=== PATIENT | male | born 1990 | race Two or more races ===

== ENCOUNTER 2020-08-08 10:24 | Emergency (ER) | payer OTHER ==
[~2020-08-08] VITALS: Ht 193 cm; Wt 140.6 kg
[~2020-08-08 10:24] MED LIST: AMOX1TAB12 PO; DOLOGEN CAPLET1 EACH PO; MEDROL4 MG PO; MUCINEX1200 MG/BO PO; ZITHROMAX PO
[2020-08-08] MEDS ORDERED: ZITHROMAX500 MG PO (13:40)
== END 2020-08-08 13:58 | disposition home or self-care (01) ==
LOC: ER 10:24
DX: B34.9 Viral infection, unspecified (principal); Z03.818 Encounter for observation for suspected exposure to other biological agents ruled out; R50.9 Fever, unspecified

== ENCOUNTER 2023-07-06 12:36 | Emergency (ER) | payer OTHER ==
[~2023-07-06] VITALS: Ht 193 cm; Wt 136.1 kg
[~2023-07-06 12:36] MED LIST changes: +ZITHROMAX500 MG PO
== END 2023-07-06 15:24 | disposition home or self-care (01) ==
LOC: ER 12:36
PROVIDERS: General Practice
DX: J06.9 Acute upper respiratory infection, unspecified (principal); R05.9 Cough, unspecified; Z20.822 Contact with and (suspected) exposure to COVID-19